=== PATIENT | male | born 1955 | race African-American/Black ===

== ENCOUNTER 2019-01-26 13:32 | Emergency (ER) | payer OTHER ==
[~2019-01-26] VITALS: Ht 170.2 cm; Wt 68.0 kg
[~2019-01-26 13:32] MED LIST: IBUPROFEN600 MG ORAL; NORCO 5-325 TA1 EACH ORAL; ROBAXIN500 MG PO
[2019-01-26 13:37] VITALS: BP 114/66
--- NOTE | 2019-01-26 14:28 | Emergency Room Report ---
History of Present Illness General Chief Complaint: Upper Extremity Injury Source: Patient Present Illness HPI 63-year-old male presents to the emergency department complaining of 9 out of 10 severity localized pain and tenderness to the right fifth digit dorsally. Patient reports his symptoms have been progressive over the course of 2 days he states that he has pain upon attempts to flex the right fifth digit he denies pain with extending the digit. Patient denies swelling or erythema he denies recent open wounds or history of previous injury. Patient denies appreciable trauma or fall. He denies fevers or chills. No aggravating or relieving factors at this time he states that he is right-hand dominant. Allergies: Coded Allergies: No Known Allergies (Unverified , 06/02/16) Patient History Past Medical History: see triage record Past Surgical History: none Pertinent Family History: none Reviewed Nursing Documentation: PMH: Agreed; PSxH: Agreed Nursing Documentation-PMH Past Medical History: No History, Except For Hx Cardiac Problems: Yes - enlarged heart Hx Hypertension: Yes Review of Systems All Other Systems: negative except mentioned in HPI Physical Exam Vital Signs Date Time Temp Pulse Resp B/P (MAP) Pulse Ox O2 Delivery O2 Flow Rate FiO2 01/26/19 13:37 98.2 98 16 114/66 (82) 97 Room Air Sp02 EP Interpretation: reviewed, normal General Appearance: no apparent distress, alert, GCS 15, non-toxic Head: normocephalic, atraumatic Eyes: bilateral eye normal inspection, bilateral eye PERRL ENT: hearing grossly normal, normal voice Neck: full range of motion Respiratory: lungs clear, normal breath sounds, speaking full sentences Cardiovascular #1: regular rate, rhythm, normal capillary refill Musculoskeletal: gait/station normal, normal range of motion, tender - TTP to the dorsum / extensor tendon of the right 5th digit. pain with flexion of the right 5th digit. Neurologic: alert, oriented x3, responsive, motor strength/tone normal, sensory intact, speech normal, grossly normal Psychiatric: judgement/insight normal Skin: normal color, no rash, warm/dry, well hydrated Lymphatic: no adenopathy Medical Decision Making PA Attestation Dr. Amador is my supervising Physician whom patient management has been discussed with. Diagnostic Impression: Primary Impression: Tendinitis of finger of right hand ER Course 63-year-old male presents to the emergency department complaining of 9 out of 10 severity localized pain and tenderness to the right fifth digit dorsally. Patient reports his symptoms have been progressive over the course of 2 days he states that he has pain upon attempts to flex the right fifth digit he denies pain with extending the digit. Patient denies swelling or erythema he denies recent open wounds or history of previous injury. Patient denies appreciable trauma or fall. He denies fevers or chills. No aggravating or relieving factors at this time he states that he is right-hand dominant. Ddx considered but are not limited to Fracture, dislocation, contusion, Sprain/ Strain/Spasm Vital signs: are WNL, pt. is afebrile H&PE are most consistent with musculoskeletal injury will perform imaging to r/ o fractures/dislocations. ORDERS: - X-ray Right hand 3 views - negative for fx, Dislocation, or significant soft tissue injury, per preliminary read in ED, and signed by EMILY Quach , my supervising physician has reviewed, and agrees with my interpretation. ED INTERVENTIONS: - Finger Splint applied to the right 5th digit by communication technician. Pt. remains neurovascularly intact. DISCHARGE: At this time pt. is stable for d/c to home. Will provide printed patient care instructions, and any necessary prescriptions. Care plan and follow up instructions have been discussed with the patient prior to discharge. Other X-Ray Diagnostic Results Other X-Ray Diagnostic Results : X-Ray ordered: right fingers # of Views/Limited Vs Complete: 3 View Indication: Pain PA Xray: Interpretation reviewed, by supervising MD, and agrees with findings. Interpretation: no dislocation, no fractures Impression: No acute disease Electronically Signed by: Tiffany Quach PA-C Last Vital Signs Date Time Temp Pulse Resp B/P (MAP) Pulse Ox O2 Delivery O2 Flow Rate FiO2 01/26/19 13:37 98.2 16 114/66 97 Room Air 01/26/19 13:37 98 Status: improved Disposition: HOME, SELF-CARE Condition: Stable Scripts Naproxen* (NAPROXEN*) 500 Mg Tablet 500 MG ORAL TWICE A DAY for 10 Days, #20 TAB Prov: Tiffany Quach 01/26/19 Patient Instructions: Tendinitis, [id number] Additional Instructions: Take medications as directed. Follow up with a Primary Care Provider in 3-5 days, even if your symptoms have resolved. -- Return sooner to ED if new symptoms occur, or current symptoms become worse. - Please note that this Emergency Department Report was dictated using [employer] grading supervisor technology software, occasionally this can lead to erroneous entry secondary to interpretation by the dictation equipment. Tiffany Quach Jan 26, 2019 14:28
[2019-01-26] MEDS ORDERED: NAPROXEN500 M2 ORAL (14:31)
[2019-01-26 14:42] VITALS: BP 121/70
--- NOTE | 2019-01-26 15:39 | Diagnostic Imaging Report ---
Indication: Pain Technique: 3 views of the right fifth finger Comparison: none Findings: No acute fractures. No dislocations. The joint spaces are preserved. Bones are osteoporotic. Impression: No acute process
== END 2019-01-26 14:46 | disposition home or self-care (01) ==
LOC: EMR 14:40
DX: M77.9 Enthesopathy, unspecified (principal); I10 Essential (primary) hypertension
CPT/HCPCS: 29130; 99283